=== PATIENT | male | born 2000 | race Caucasian/White ===

== ENCOUNTER 2020-09-22 17:22 | Inpatient (IN) ==
[2020-09-22 17:56] LABS: Urine Appearance Turbid; Urine Bilirubin Negative (Negative); Urine Blood Negative (Negative); Urine Color Yellow; Urine Glucose Negative (Negative); Urine Ketones Negative (Negative); Urine Nitrite Negative (Negative); Urine Protein Negative (Negative); Urine Specific Gravity 1.026 (1.010-1.030); Urine Urobilinogen Negative (Negative)
[2020-09-22 18:10] LABS: Urine Benzodiazepine Screen None Detected (None Detect); Urine Cannabinoids Screen Presumptive Positive (None Detect); Urine Opiates Screen None Detected (None Detect)
[2020-09-22 18:18] LABS: ABS Basophils 0.1 10^3/ul (0-0.2); ABS Eosinophils 0.2 10^3/ul (0-0.6); ABS Lymphocytes 1.5 10^3/ul (1.0-4.8); ABS Monocytes 0.4 10^3/ul (0-0.8); ABS Neutrophils 3.6 10^3/ul (1.5-7.7); Eosinophil % 3.1 %; Hematocrit 46 % (42-52); Hemoglobin 16.4 g/dL (14.0-18.0); Lymphocyte % 26.2 %; Mean Corpuscular HGB Conc 36 g/dL (31-36); Mean Corpuscular Hemoglobin 31 pg (27-31); Mean Corpuscular Volume 86 fL (80-94); Mean Platelet Volume 7.2 fL (7.4-10.4); Platelet Count 326 10^3/uL (150-450); Red Blood Count 5.36 10^6 /uL (4.18-5.48); Red Cell Distribution Width 13 % (10-15); White Blood Count 5.8 10^3/uL (3.5-10.8)
[2020-09-22 18:35] LABS: ALT 13 U/L (7-52); AST 15 U/L (13-39); Albumin 5.1 g/dL (3.2-5.2); Albumin/Globulin Ratio 1.9 (1-3); Alkaline Phosphatase 64 U/L (34-104); Anion Gap 6 mmol/L (2-11); BUN/Creatinine Ratio 14.8 (8-20); Blood Urea Nitrogen 12 mg/dL (6-24); CO2 Carbon Dioxide 30 mmol/L (22-32); Calcium 9.6 mg/dL (8.6-10.3); Chloride 104 mmol/L (101-111); EGFR Non-African American 121.5 (>60); Globulin 2.7 g/dL (2-4); Glucose 90 mg/dL (70-100); Potassium 3.9 mmol/L (3.5-5.0); Sodium 140 mmol/L (135-145); Total Protein 7.8 g/dL (6.4-8.9)
[2020-09-22 19:02] LABS: Acetaminophen < 15 mcg/mL; Alcohol, S < 10 mg/dL (<10); Salicylate < 2.50 mg/dL (<30)
[2020-09-22 19:17] LABS: TSH Ultra Thyroid Stim Horm 0.73 mcIU/mL (0.34-5.60)
[2020-09-23] MEDS ORDERED: Al Hydrox/Mg Hydrox/Simet LIQ 30 ML UDC PO PRN (02:05)
[2020-09-23] MEDS ORDERED: Influenza VAC *QUAD* 2020-21* 0.5 ML SYRINGE IM ONE (09:00)
[2020-09-23] MEDS: Vitamin THERAPEUTIC TAB PO SCH (09:27)
[2020-09-23] MEDS: Nicotine PATCH 14 MG/24 HR PATCH TRANSDERM SCH (09:27)
[2020-09-24] MEDS: Nicotine PATCH 14 MG/24 HR PATCH TRANSDERM SCH (11:16)
[2020-09-24] MEDS: Vitamin THERAPEUTIC TAB PO SCH (11:16)
[2020-09-24] MEDS ORDERED: Nicotine Lozenge mini 4 MG LOZNG.MINI MT PRN (17:26)
[2020-09-25] MEDS: Vitamin THERAPEUTIC TAB PO SCH (08:35)
[2020-09-25] MEDS: Nicotine PATCH 14 MG/24 HR PATCH TRANSDERM SCH ×2 (08:36→10:31)
[2020-09-26] MEDS: Vitamin THERAPEUTIC TAB PO SCH (08:34)
[2020-09-26] MEDS: Nicotine PATCH 14 MG/24 HR PATCH TRANSDERM SCH (08:34)
[2020-09-26 09:19] VITALS: BP 92/64
== END 2020-09-26 13:00 | disposition home or self-care (01) | DRG 751 ==
LOC: ED 17:22 → MERGE 23:30 → BSU 23:30 → UNMERGE 23:30 → BSU 09-23 01:11
PROVIDERS: ADMIT Psychiatry & Neurology Psychiatry; ATTEND Psychiatry & Neurology Psychiatry